=== PATIENT | female | born 1965 ===

== ENCOUNTER 2024-03-27 08:31 | Outpatient (REF) | payer BC, SELFPAY | END 2024-03-27 08:32 | disposition home or self-care (01) | LOC: HO.HOSX 08:31 | PROVIDERS: Visit Provider Orthopaedic Surgery | DX: Z13.89 Encounter for screening for other disorder (principal) ==

== ENCOUNTER 2024-05-01 11:28 | Outpatient (REF) | payer BC, SELFPAY ==
--- NOTE | ~2024-05-01 | XR_ITS ---
EXAMINATION: XR HAND, RIGHT CLINICAL INFORMATION: Pain. COMPARISON: None available. TECHNIQUE: PA, lateral, and oblique views of the right hand. FINDINGS: Bony alignment and mineralization are normal. There is a mild ulnar minus variance. There is moderate osteoarthritic change of the interphalangeal joint of the thumb. There is mild arthritic change of the second and fourth distal interphalangeal joints. There is moderate osteoarthritic change of the first carpometacarpal joint. No fracture or dislocation seen. There is no focal erosion. No focal soft swelling, gas or foreign body is seen. XR/XR hand RT min 3V IMPRESSION: There are osteoarthritic changes of the right hand and wrist, as detailed. Electronically signed by: Hossein Cheek MD 05/24/2024 10:43 PM EDT
== END 2024-05-01 11:29 | disposition home or self-care (01) ==
LOC: HO.HOSX 11:28
PROVIDERS: Visit Provider Orthopaedic Surgery
DX: M79.641 Pain in right hand (principal); R22.31 Localized swelling, mass and lump, right upper limb
CPT/HCPCS: 73130

== ENCOUNTER 2024-05-01 14:42 | Outpatient (AMB) | payer BC, SELFPAY ==
--- NOTE | 2024-05-01 15:25 | MHC.OFFVIS ---
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 Patient shares it has been a couple months since she first noticed it. Patient shares she has been wearing a bracelet for many years and noticed the lump, prompting her to remove the bracelet. She is unsure if it has changed in size. Denies pain or discomfort. Patient states she has noticed some swelling up in the right forearm. Denies numbness or tingling. Denies prior injuries or surgeries to the right wrist/hand. 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 She complains of a mass on the dorsal aspect of her right wrist. She says she first noticed this several months ago, and says it has somewhat changed in size. She also complains that she feels swelling in her right forearm compared to her left, and has difficulty wearing her bracelet due to this swelling. She denies any falls, injuries, numbness, or tingling. Review of Systems Const All systems reviewed & are unremarkable except as noted in HPI and below Physical Exam Const General: cooperative, healthy appearing and no acute distress Orientation/consciousness: patient oriented x3 HEENT Head: Yes normocephalic and Yes atraumatic Eyes EOM: EOMs intact bilaterally Resp Effort & Inspection: normal respiratory effort and able to speak in complete sentences Cardio Jugular venous distension: no JVD Skin General skin exam: turgor normal Rashes: no rashes Neuro General: patient oriented x3 Extrem Other: Evaluation of Right Upper Extremity: The patient is alert, oriented, and in no acute distress Neuro: Median, Ulnar, Radial nerves motor and sensory intact and sensation is normal to the tips of all digits Vascular: Cap refill brisk ROM: She can make a fist and extend all her digits Full wrist ROM Skin: No lacerations or abrasions. General: No Ecchymosis. No Erythema or evidence of infection. There is an area of fullness on the dorsal aspect of her right wrist dorsal to the DRUJ and perhaps slightly radial. It is perhaps 2 cm in length by perhaps 1.5-2 cm in width. The area is somewhat multi lobular, as 1 might feel with a lipoma. No discrete ganglion that I can feel. It is not particularly tender. No overlying skin changes. Psych Appearance: grossly normal Affect: normal affect Attitude: cooperative Assessment & Plan Assessment & Plan (1) Mass of right wrist: Code(s): R22.31 - Localized swelling, mass and lump, right upper limb Category: Medical Plan Assessment & Plan: 1. Question of right dorsal wrist mass No clearly identifiable ganglion, question possible lipoma Painless, not particularly tender I educated her about this condition Etiology is unclear, and I recommend we wait and see if there are any changes that develop over the next 2 months She will follow up in 2 months and we can re-assess. At that time we may consider ordering an MRI, with & without contrast, to better visualize this mass Scribed for Brigette Barahona MD by Donato Turner, manager medical writing, on 05/01/24 at 3:35 PM, EST. Orders: Orders XR hand RT min 3V Today M79.641 - Pain in right hand Coding Level of Care Code New Pt Level 3 (19843) Diagnoses Mass of right wrist R22.31
== END 2024-05-01 16:01 | disposition home or self-care (01) ==
PROVIDERS: PCP Internal Medicine; Visit Provider Orthopaedic Surgery
DX: R22.31 Localized swelling, mass and lump, right upper limb (principal)
CPT/HCPCS: 99203

== ENCOUNTER 2024-06-05 13:29 | Outpatient (AMB) | payer BC, SELFPAY ==
--- NOTE | 2024-06-05 13:34 | A.OFFVIS_ITS ---
Vital Signs 06/05/24 13:45 Height 5 ft 3.5 in Weight 218 lb BMI 38.0 Intake Visit Reasons: OV-right wrist mass Intake Note: Bernadette is a 59 right hand dominant female who presents today for a follow up evaluation of right wrist pain. Patient reports worsening swelling at the CMC joint causing right index and right middle finger swelling as well as tingling. Patient states she is experiencing morning stiffness as well as discomfort when trying to move her right hand on different directions. She also shares it hurts to grab things. She is questioning if she is having tendonitis again. She is currently wearing a wrist brace at night. Patient would like to discuss a steroid injection today. Denies prior injuries or surgeries to the right hand. Patient shared she is allergic to different antibiotics however she does not know her current medication allergies. She will be proving us with a list once she is able to. HPI HPI OV-right wrist mass: Details: Bernadette is a 59 year old woman who presents with complaints of right hand/wrist pain & swelling. She complains of increased swelling & pain in her right wrist, index, and middle fingers. She also complains of new tingling in her index & middle fingers. She says this pain & swelling began in the last few weeks, and she denies any falls, injuries, or any other activities. 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 She complains of morning stiffness in her fingers, and of generalized discomfort when moving her fingers. She finds grabbing or squeezing activities are painful. She has been wearing a wrist brace at night, with limited relief. She is worried she is developing a tendinitis. She says she develops De Quervains in the right wrist last year, and this was treated with an injection at an outside clinic. She says this took several months to resolve las time. She says she has been seen by Rheumatology in the past to assess for Rheumatologic conditions, and this was found to be negative. [facility] Social History (Updated 05/30/24 @ 15:04 by PILAR Holm) Current occupation: rt handed Physical Exam Vital Signs: BMI result Body Mass Index 38.0 Extrem Other: Evaluation of Right Upper Extremity: The patient is alert, oriented, and in no acute distress Neuro: Median, Ulnar, Radial nerves motor and sensory intact and sensation is normal to the tips of all digits Vascular: Cap refill brisk ROM: She can make a fist and extend all her digits Full wrist ROM Positive Robyn test on the right Negative Robyn test on the left Tender over the right 1st dorsal compartment There is an area of fullness on the dorsal aspect of her right wrist dorsal to the DRUJ and perhaps slightly radial. It is perhaps 2 cm in length by perhaps 1.5-2 cm in width. The area is somewhat multi lobular, as 1 might feel with a lipoma. No discrete ganglion that I can feel. It is not particularly tender. No overlying skin changes. Office Procedures AMB Fracture Care Details: No fracture, injection Fracture Billing Code: Fracture Billing Code Assessment & Plan Assessment & Plan (1) De Quervain's tenosynovitis, right: Code(s): M65.4 - Radial styloid tenosynovitis [de Quervain] Category: Medical (2) Mass of right wrist: Code(s): R22.31 - Localized swelling, mass and lump, right upper limb Category: Medical (3) Swelling of joint, hand, right: Code(s): M25.441 - Effusion, right hand Category: Medical Plan Assessment & Plan: 1. Right De Quervain's tenosynovitis Positive Robyn test Onset ~4 weeks ago I educated her about this condition I discussed operative and non-operative treatment options The patient would like to proceed with an injection I discussed activity modification, they should limit or avoid any heavy or repetitive pinching or gripping activities She was fitted for a comfort cool brace to wear with daily activity Injection #1: The risks and benefits of a steroid injection including but not limited to risk of damage to blood vessels, nerves, tendons, infection, skin bleaching, failure to improve symptoms, increased pain, and possible need for further injections or other intervention were discussed with the patient and the patient wishes to proceed with the steroid injection. Once consent was obtained, I sterilely prepped the area over the 1st dorsal compartment of the Right thumb. I then injected the 1st dorsal compartment with a combination of 1 mL of dexamethasone (4mg/ml), and 1% lidocaine. The patient tolerated the procedure well with no complications and good resolution of their symptoms prior to leaving clinic. If the patient continues to have pain 6-8 weeks following this injection, they may call to schedule appointment to discuss alternative treatment options she will follow up in 6 weeks to see how she is doing 2. Right hand swelling & stiffness Primarily in the 2nd and 3rd MCP joints Etiology unclear, onset ~4 weeks ago I recommend she work on gentle ROM & activity modification If her symptoms persist or worsen we may consider a referral to Rheumatology for assessment of a possible Rheumatologic factor 3. Question of right dorsal wrist mass No clearly identifiable ganglion, question possible lipoma Painless, not particularly tender I educated her about this condition Etiology is unclear, and I recommend we wait and see if there are any changes that develop over the next few weeks She will follow up in 6 weeks and we can re-assess. At that time we may consider ordering an MRI, with & without contrast, to better visualize this mass Scribed for Brigette Barahona MD by Donato Turner, emergency medical service coordinator, on 06/05/24 at 2:15 PM, EST. Orders: Referrals Rheumatology Referral M25.441 - Effusion, right hand, M65.4 - Radial styloid tenosynovitis [de Quervain], M79.641 - Pain in right hand Coding Level of Care Code Est Pt Level 3 (02853) Diagnoses De Quervain's tenosynovitis, right M65.4 Mass of right wrist R22.31 Swelling of joint, hand, right M25.441 CPT Codes Fracture Care - Fracture Billing Code: Fracture Billing Code ([id number])
[2024-06-05 13:45] VITALS: BMI 38.0
== END 2024-06-05 14:39 | disposition home or self-care (01) ==
PROVIDERS: PCP Internal Medicine; Visit Provider Orthopaedic Surgery
DX: M65.4 Radial styloid tenosynovitis [de Quervain] (principal); M25.441 Effusion, right hand
CPT/HCPCS: 20550; 99213

== ENCOUNTER → 2024-06-05 13:29 | Outpatient (BNVA) | payer BC, SELFPAY | PROVIDERS: PCP Internal Medicine; Visit Provider Orthopaedic Surgery | DX: M65.4 Radial styloid tenosynovitis [de Quervain] (principal); R22.31 Localized swelling, mass and lump, right upper limb; M25.441 Effusion, right hand | CPT/HCPCS: 20550; J1100 ==

== ENCOUNTER 2024-07-24 13:46 | Outpatient (AMB) | payer BC, SELFPAY ==
[2024-07-24 13:51] VITALS: BMI 38.0
--- NOTE | 2024-07-24 13:51 | MHC.OFFVIS ---
Vital Signs 07/24/24 13:51 Height 5 ft 3.5 in Weight 218 lb BMI 38.0 Intake Visit Reasons: OV RT dorsal wrist mass Intake Note: Bernadette is a 59 right hand dominant female who presents today to reassess mass on the right dorsal wrist. Patient reports steroid injection given 06/05/24 did not last as long as it did before. Patient has been taking Advil Dual Action without relief. Patient feels there is still swelling, questions if there is anything else happening. Patient would like an MRI of her hand/wrist. 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 She is here today for follow-up of her right de Quervain tenosynovitis. She had an injection with me on 06/05/2024, and she says that it worked for about a month, but she is back to having significant radial sided wrist pain. Of note, she had had an injection for this about a year ago that had lasted for several months. Again she has also noted some stiffness and swelling in her right 2nd and 3rd MCP joints but has been working on range of motion. We also referred her to Rheumatology for further evaluation of this issue, and she said that she has an appointment with them on 08/15/2024. [facility] Social History (Updated 05/30/24 @ 15:04 by PILAR Holm) Current occupation: rt handed Physical Exam Vital Signs: BMI result Body Mass Index 38.0 Extrem Other: Patient was alert oriented and in no acute distress. She is most tender to palpation over the right 1st dorsal compartment over the radial styloid. Small, 2-3 mm diameter spherical mass most consistent with a small ganglion over the 1st dorsal compartment at the radial styloid. She has a positive Robyn test on the right and a negative Robyn test on the left. No tenderness over the A1 yudith and no locking or catching. Not particularly tender over the basal joint. Cap refill brisk and sensation intact to all digits. She does still have some visible swelling of the 2nd and 3rd MCP joints. Somewhat improve range of motion as she is better able to make a fist and extend all of her digits. No locking or catching. Assessment & Plan Assessment & Plan (1) De Quervain's tenosynovitis, right: Code(s): M65.4 - Radial styloid tenosynovitis [de Quervain] Category: Medical (2) Swelling of joint, hand, right: Code(s): M25.441 - Effusion, right hand Category: Medical Plan Assessment and plan: 1. Right de Quervain tenosynovitis Status post steroid injection 06/05/2024 She also had an injection at an outside clinic about a year ago. She continues to be symptomatic. I educated her about this condition and we discussed operative and non operative treatment options. She would like to proceed with surgery. The risks and benefits of operative treatment were discussed with the patient and the patient wishes to proceed with surgery. These risks include, but are not limited to risk of damage to blood vessels, nerves, tendons, infection, recurrence, incomplete relief of preoperative symptoms, persistent pain, possible need for further surgery and the risks associated with regional blocks and anesthesia. The plan is to take the patient to the operating room sometime in the next few weeks for the following procedures: 1. Right 1st dorsal compartment release 2. Excision of associated ganglion cyst All of the preoperative paperwork including the consent was filled out today. All the patient's questions were answered. 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 2. Right hand swelling & stiffness Primarily in the 2nd and 3rd MCP joints Etiology unclear, onset summer Range of motion has improved with range of motion exercises. She is scheduled to see Rheumatology for assessment of a possible Rheumatologic factor 3. Question of right dorsal wrist mass No clearly identifiable ganglion, question possible lipoma Painless, not particularly tender Not mentioned were evaluated today. Coding Level of Care Code Est Pt Level 4 (14195) Diagnoses De Quervain's tenosynovitis, right M65.4 Swelling of joint, hand, right M25.441
== END 2024-07-24 14:37 | disposition home or self-care (01) ==
PROVIDERS: PCP Internal Medicine; Visit Provider Orthopaedic Surgery
DX: M65.4 Radial styloid tenosynovitis [de Quervain] (principal); M25.441 Effusion, right hand
CPT/HCPCS: 99214

== ENCOUNTER 2024-08-15 12:20 | Outpatient (AMB) | payer BC, SELFPAY ==
[2024-08-15 12:40] VITALS: BP 112/52; PULSE 71; BMI 41.5
--- NOTE | 2024-08-15 12:40 | A.OFFVIS_ITS ---
Vital Signs 08/15/24 12:40 Height 5 ft 3.5 in Weight 238 lb 1.588 oz BMI 41.5 BP 112/52 L Blood Pressure Location Lt brachial Position Sitting Pulse 71 Pulse Source Pulse Oximeter Intake Visit Reasons: Join pain,cm Intake Note: Patient present today for joint pain. 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 Accompanied by: Self / Same As Patient Allergies latex Allergy (Mild, Verified 08/15/24 12:46) Unknown amoxicillin Allergy (Unknown, Verified 08/15/24 12:45) Unknown clavulanic acid [From Augmentin] Allergy (Unknown, Verified 08/15/24 12:45) Unknown clindamycin Allergy (Unknown, Verified 08/15/24 12:45) Unknown levofloxacin [From Levaquin] Allergy (Unknown, Verified 08/15/24 12:45) Unknown Penicillins Allergy (Unknown, Verified 08/15/24 12:45) Unknown Sulfa (Sulfonamide Antibiotics) Allergy (Verified 08/15/24 12:45) edema Medication List - Last Reconciled 08/15/24 by Lin Nelson MD albuterol sulfate 90 mcg/actuation inhalation azelastine 1 spray intranasal ONCE fluticasone propionate 50 mcg/actuation (Allergy Relief (fluticasone)) 1 spray intranasal DAILY metoprolol succinate ER 50 mg PO DAILY valsartan 80 mg PO DAILY HPI Comments Details: Patient is a 59 y.o. female with HTN who presents for evaluation of hand pain Patient notes that she has been having hand pain for over 1 year, involving the 1st CMC joint bilaterally, DIPs, and bilateral 2nd MCPs (R>L). Particularly when she does fine movements with her hands such as knitting Pain is worse at the end of the day, but does not AM stiffness for 1 hour. She is also notes that sometimes she has swelling of her 3rd digit associated with scaling of that finger She also reports wrist pain and knee pain. No knee swelling. No intermittent swelling with resolution No known family history of RA or SLE Mother and father with OA. [facility] Medical History (Updated 08/15/24 @ 15:19 by Lin Nelson MD) Osteoarthritis of hands, bilateral Social History Current occupation: rt handed Review of Systems Const Details: Review of Systems Constitutional: Denies fever, chills, weight loss ENT: Denies vision changes, eye pain or eye redness, dental caries, dry mouth GI: Denies nausea, vomiting, diarrhea, abdominal pain, change in BM Pulm: Denies SOB, SORIA, hemoptysis, wheezing Cards: Denies chest pain, palpitations Skin: Denies Raynaud's, rash, nail changes, photosensitivity, MARINE BIOLOGIST: Denies headaches, weakness, paresthesias, recurrent falls MSK: as per HPI All other systems reviewed and are unremarkable except noted above Physical Exam Vital Signs: Last Vital Signs Pulse 71 08/15/24 12:40 BP 112/52 L 08/15/24 12:40 BMI result Body Mass Index 41.5 Physical Examination CONSTITUITIONAL Patient alert and cooperative. Well appearing and in no apparent painful distress HEENT Conjunctiva and sclera clear. ?Pupils equal round and reactive to light. ?No lymphadenopathy CHEST/RESPIRATORY SYSTEM Normal respiratory effort and able to speak in complete sentences. ?Clear to auscultation bilaterally. ?No crackles, rales, rhonchi, wheezes heard. CARDIAC SYSTEM Regular rate and rhythm. ?S1 and S2 heard no murmurs. ?Radial pulses intact bilaterally MSK Hands: ?Good swim coach strength bilaterally - 5/5. ?Heberden's nodes noted throughout. Fullness and tenderness to palpation noted to the 2nd MCP. Wrists: ?Full range of motion at the wrists without pain. ?No tenderness to palpation or synovitis noted to the wrists. Known de Quervain tenosynovitis Elbows: Full range of motion without pain. No tenderness, weakness, swelling, increased warmth or erythema. Shoulders: Full range of motion without pain. No tenderness, weakness, swelling, increased warmth or erythema. Hips: Full range of motion without pain. Hip bursa: No tenderness to palpation Knees: ?Full range of motion. ?No tenderness, swelling, increased warmth or erythema.?No effusion or crepitations Ankles: Full range of motion. ?No tenderness, swelling, increased warmth or erythema.? Feet: ?Negative squeeze test. ?No tenderness to palpation or swelling of the MTPs. Tender points:??No tenderness to palpation of the neck, shoulders, chest, elbows, hips, buttocks or knees. SKIN Scaling noted to the palmar surface of the right 3rd digit Rash noted over eyelid Erythema noted to the anterior upper chest Results Reviewed Results Reviewed: XR Right Hand 05/01/2024 FINDINGS: Bony alignment and mineralization are normal. There is a mild ulnar minus variance. There is moderate osteoarthritic change of the interphalangeal joint of the thumb. There is mild arthritic change of the second and fourth distal interphalangeal joints. There is moderate osteoarthritic change of the first carpometacarpal joint. No fracture or dislocation seen. There is no focal erosion. No focal soft swelling, gas or foreign body is seen. Assessment & Plan Assessment & Plan (1) Osteoarthritis of hands, bilateral: Code(s): M19.041 - Primary osteoarthritis, right hand; M19.042 - Primary osteoarthritis, left hand Category: Medical Qualifiers: Osteoarthritis type: primary Qualified Code(s): M19.041 - Primary osteoarthritis, right hand; M19.042 - Primary osteoarthritis, left hand Plan: #Hand Pain Exam is consistent with primary osteoarthritis however with her swelling and tenderness to the 2nd MCP of the right hand there is a possibility that she may have an underlying autoimmune disorder such as rheumatoid arthritis. However she does have a history of fine movements with her hands such as knitting which can cause synovial hypertrophy involving the 2nd MCP. XRs without evidence of periarticular osteopenia or erosions Plan - Check RF, CCP, ESR - Check myositis extended panel given the scaling to hand and the erythema to upper chest - Topical diclofenac up to three times a day - Continue OTC Naproxen, on bad days can take up to 2 tablets twice a day - RTC September 2024 Plan I spent 30 minutes reviewing the record, reviewing XRs, seeing the patient, discussing the treatment plan and documenting in the medical record ? Orders: Orders Comprehensive Met. Panel Today M25.441 - Effusion, right hand, M79.641 - Pain in right hand Aldolase Today M25.441 - Effusion, right hand, M79.641 - Pain in right hand Creatine Kinase Total Today M25.441 - Effusion, right hand, M79.641 - Pain in right hand Complete Blood Count Auto Diff Today M25.441 - Effusion, right hand, M79.641 - Pain in right hand C Reactive Protein Today M25.441 - Effusion, right hand, M79.641 - Pain in right hand Erythrocyte Sedimentation Rate Today M25.441 - Effusion, right hand, M79.641 - Pain in right hand Rheumatoid Factor Today M25.441 - Effusion, right hand, M79.641 - Pain in right hand Cyclic Citrullinated Peptide Today M25.441 - Effusion, right hand, M79.641 - Pain in right hand MSA Panel Extended Today M25.441 - Effusion, right hand, M79.641 - Pain in right hand Medications: New diclofenac sodium 1% apply to single knee, ankle, foot; for foot includes sole/toes/top of foot 4 grams topical QID 100 grams 2RF M19.041 - Primary osteoarthritis, right hand, M19.042 - Primary osteoarthritis, left hand Coding Level of Care Code New Pt Level 3 (93383) Diagnoses Primary osteoarthritis of both hands M19.041; M19.042 Osteoarthritis type: primary
== END 2024-08-15 13:42 | disposition home or self-care (01) ==
PROVIDERS: PCP Internal Medicine; Visit Provider Student in an Organized Health Care Education/Training Program
DX: M19.041 Primary osteoarthritis, right hand (principal); M19.042 Primary osteoarthritis, left hand
CPT/HCPCS: 99203

== ENCOUNTER 2024-08-15 12:20 | Outpatient (REF) | payer BC, SELFPAY ==
[2024-08-15 14:13] LABS: MANUAL DIFF FLAG NO
[2024-08-15 15:01] LABS: Basophils Absolute Auto 0.1 X10*3/uL (0.0-0.2); Basophils Percent Auto 1.1 % (0-2); Eosinophils Absolute Auto 0.3 X10*3/uL (0.0-0.4); Eosinophils Percent Auto 3.4 % (0-4); Hematocrit 42.1 % (37.0-47.0); Hemoglobin 13.6 g/dl (12.0-16.0); Imm Gran Abs Auto 0.02 X10*3/uL (0.00-0.03); Imm Gran Pct Auto 0.2 % (0.0-0.4); Lymphocytes Absolute Auto 3.1 X10*3/uL (1.2-4.9); Lymphocytes Percent Auto 34.5 % (20-40); Mean Corpuscular HGB Conc 32.3 g/dl (31.0-35.0); Mean Corpuscular Hemoglobin 28.4 pg (27.0-33.0); Mean Corpuscular Volume 87.9 fL (80.0-98.0); Mean Platelet Volume 11.9 fL (9.4-12.3); Monocytes Absolute Auto 0.8 X10*3/uL (0.1-1.2); Monocytes Percent Auto 8.3 % (2-11); Neutrophils Absolute Auto 4.8 x10*3/uL (2.0-8.3); Neutrophils Percent Auto 52.5 % (45-73); Platelet Count 228 X10*3/uL (160-400); Red Blood Count 4.79 X10*6/uL (4.20-5.50); Red Cell Distribution Width 13.4 % (11.0-16.0); White Blood Count 9.1 X10*3/uL (4.8-10.8)
[2024-08-15 15:34] LABS: Alanine Aminotransferase 67 U/L (0-31); Albumin Level 4.6 g/dL (3.5-5.0); Alkaline Phosphatase 103 U/L (39-117); Anion Gap 13 (12-20); Aspartate Amino Transferase 44 U/L (5-31); Bilirubin Total 0.4 mg/dL (0.0-1.0); Blood Urea Nitrogen 14 mg/dL (9-16); C Reactive Protein 1.34 mg/dL (< or = 0.50); Calcium 9.8 mg/dL (8.4-10.2); Carbon Dioxide 29 mmol/L (22-29); Chloride 102 mmol/L (96-108); Estimated Glomerular Filt Rate > 60; Glucose Random 101 mg/dL (60-115); Potassium 4.8 mmol/L (3.3-5.1); Sodium 139 mmol/L (135-145); Total Protein 8.2 g/dL (6.5-8.0)
[2024-08-15 15:41] LABS: Erythrocyte Sedimentation Rate 17 MM/HR (0-20)
[2024-08-15 15:44] LABS: Rheumatoid Factor < 13.0 IU/mL (<15.0)
[2024-08-20 20:18] LABS: Cyclic Citrullinated Peptide <16 UNITS
[2024-08-30 22:03] LABS: Aldolase 6.3 U/L (<=8.1)
[2024-09-10 14:58] LABS: Cytosolic 5'nuc 1A Ab IgG <5 Units; Ej Ab <11 SI (<11); Jo-1 Ab <11 SI (<11); MDA5 Ab <11 SI (<11); Mi-2 alpha Ab <11 SI (<11); Mi-2 beta Ab <11 SI (<11); NXP-2 (MJ) Ab <11 SI (<11); Oj Ab <11 SI (<11); Pl-12 Ab <11 SI (<11); Pl-7 Ab <11 SI (<11); SRP Ab <11 SI (<11); TIF1 gamma Ab <11 SI (<11)
== END 2024-08-15 12:21 | disposition home or self-care (01) ==
LOC: HO.LAB 12:20
PROVIDERS: PCP Internal Medicine; Visit Provider Student in an Organized Health Care Education/Training Program
DX: M25.441 Effusion, right hand (principal); M79.641 Pain in right hand; M19.041 Primary osteoarthritis, right hand; M19.042 Primary osteoarthritis, left hand
CPT/HCPCS: 36415; 80053; 82085; 82550; 83516; 83520; 84182; 85025; 85652; 86140; 86200; 86235; 86431

== ENCOUNTER 2024-09-21 14:35 | Outpatient (AMB) | payer BC, SELFPAY ==
[2024-09-21 14:36] VITALS: BP 130/82; PULSE 83; O2SAT 98; BMI 41.5
--- NOTE | 2024-09-21 14:36 | A.OFFVIS_ITS ---
Vital Signs 09/21/24 14:36 Height 5 ft 3.5 in Weight 238 lb 1.588 oz BMI 41.5 BP 130/82 Blood Pressure Location Lt brachial Position Sitting Pulse 83 Pulse Source Pulse Oximeter Pulse Oximetry (%) 98 Oxygen Delivery Method Room Air Intake Visit Reasons: RT hand arthritis Intake Note: Patient presents for right hand arthritis and , and she states that the Aquaphor that was suggested is not helping. Allergies latex Allergy (Mild, Verified 09/21/24 14:41) Unknown amoxicillin Allergy (Unknown, Verified 09/21/24 14:41) Unknown clavulanic acid [From Augmentin] Allergy (Unknown, Verified 09/21/24 14:41) Unknown clindamycin Allergy (Unknown, Verified 09/21/24 14:41) Unknown levofloxacin [From Levaquin] Allergy (Unknown, Verified 09/21/24 14:41) Unknown Penicillins Allergy (Unknown, Verified 09/21/24 14:41) Unknown Sulfa (Sulfonamide Antibiotics) Allergy (Verified 09/21/24 14:41) edema Medication List - Last Reconciled 09/21/24 by Lin Nelson MD albuterol sulfate 90 mcg/actuation inhalation azelastine 1 spray intranasal ONCE betamethasone dipropionate 0.05% 1 appl topical BID PRN diclofenac sodium 1% 4 grams topical QID fluticasone propionate 50 mcg/actuation (Allergy Relief (fluticasone)) 1 spray intranasal DAILY metoprolol succinate ER 50 mg PO DAILY valsartan 80 mg PO DAILY HPI Comments Details: Patient is a 59 y.o. female with HTN who presents for follow up of hand pain Interval History: Patient last seen 08/15/2024. At that time she was establishing care for bilateral hand pain more so right than left. At that time the exam and history was more consistent with osteoarthritis. I recommended topical diclofenac up to 4 times a day. Today patient presents for urgent visit because she is complaining of irritation over the right 3rd PIP. She is concerned that this may be psoriasis. She does note that when her DIPs initially started to hurt she had this skin reaction or skin rash over the DIPs and that resolved and has now progressed to the PIP where she has issues. She denies any rashes any other place in her body. No nail changes. No history of psoriasis. No dactylitis or enthesitis. Rheumatologic History: Presented with complaints of bilateral pain. Signs and symptoms including imaging was consistent osteoarthritis. Initial History: Patient notes that she has been having hand pain for over 1 year, involving the 1st CMC joint bilaterally, DIPs, and bilateral 2nd MCPs (R>L). Particularly when she does fine movements with her hands such as knitting Pain is worse at the end of the day, but does not have AM stiffness for 1 hour. She is also notes that sometimes she has swelling of her 3rd digit associated with scaling of that finger She also reports wrist pain and knee pain. No knee swelling. No intermittent swelling with resolution No known family history of RA or SLE Mother and father with OA. 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 Review of Systems Const Details: Review of Systems Constitutional: Denies fever, chills, weight loss ENT: Denies vision changes, eye pain or eye redness, dental caries, dry mouth GI: Denies nausea, vomiting, diarrhea, abdominal pain, change in BM Pulm: Denies SOB, SORIA, hemoptysis, wheezing Cards: Denies chest pain, palpitations Skin: Denies Raynaud's, rash, nail changes, photosensitivity, [employer]LECT[employer]OL [employer]SEM[employer]ER: Denies headaches, weakness, paresthesias, recurrent falls MSK: as per HPI All other systems reviewed and are unremarkable except noted above Physical Exam Vital Signs: BMI result Body Mass Index 41.5 Physical Examination CONSTITUITIONAL Patient alert and cooperative. Well appearing and in no apparent painful distress HEENT Conjunctiva and sclera clear. ?Pupils equal round and reactive to light. ?No lymphadenopathy. ? CHEST/RESPIRATORY SYSTEM Normal respiratory effort and able to speak in complete sentences. ?Clear to auscultation bilaterally. ?No crackles, rales, rhonchi, wheezes heard. CARDIAC SYSTEM Regular rate and rhythm. ?S1 and S2 heard no murmurs. 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 No deformities noted. ?No synovitis noted to the MCPs, PIPs or DIPs. ?Mild tenderness to palpation of the DIPs. Wrists: ?Full range of motion at the wrists without pain. ?No tenderness to palpation or synovitis noted to the wrists. Elbows: Full range of motion without pain. No tenderness, weakness, swelling, increased warmth or erythema. Shoulders: Full range of motion without pain. No tenderness, weakness, swelling, increased warmth or erythema. Hips: Full range of motion without pain. Hip bursa: No tenderness to palpation Knees: ?Full range of motion. ?No tenderness, swelling, increased warmth or erythema.?No effusion or crepitations Ankles: Full range of motion. ?No tenderness, swelling, increased warmth or erythema.? Feet: ?Negative squeeze test. ?No tenderness to palpation or swelling of the MTPs. Tender points:?No tenderness to palpation of the bilateral trapezius, supraspinatus, greater trochanters, anterior costochondral junctions, bilateral gluteal areas, bilateral suboccipital muscle insertions SKIN flat erythematous irregular patch overlying the right 3rd PIP No psoriatic plaques to the elbows, hairline, gluteal fold. Results Reviewed Results Reviewed: Laboratory Tests 08/15/24 14:11 WBC 9.1 RBC 4.79 Hgb 13.6 Hct 42.1 Plt Count 228 ESR 17 Sodium 139 Potassium 4.8 Chloride 102 Carbon Dioxide 29 BUN 14 Creatinine 0.91 AST 44 H ALT 67 H Total Creatine Kinase 187 H C-Reactive Protein 1.34 H Total Protein 8.2 H Albumin 4.6 Aldolase 6.3 Rheumatoid Factor < 13.0 Cycl Citrul Peptide IgG <16 NORRIS-1 Antibody <11 EJ Antibody <11 OJ Antibody <11 Mi-2-Alpha Ab <11 Mi-2-Beta Ab <11 NXP-2 Ab <11 PL-7 Antibody <11 PL-12 Antibody <11 SRP Ab <11 MDA5 Ab <11 Myos P155/140 TIF1-g Ab <11 NT5C1A IgG Antibody <5 XR Right Hands 08/2024 FINDINGS: Bony alignment and mineralization are normal. There is a mild ulnar minus variance. There is moderate osteoarthritic change of the interphalangeal joint of the thumb. There is mild arthritic change of the second and fourth distal interphalangeal joints. There is moderate osteoarthritic change of the first carpometacarpal joint. No fracture or dislocation seen. There is no focal erosion. No focal soft swelling, gas or foreign body is seen. My read: I noticed some periosteal reaction involving the ulnar and radial side of the 2nd, 3rd, 4th proximal phalanx. Assessment & Plan Assessment & Plan (1) Osteoarthritis of hands, bilateral: Code(s): M19.041 - Primary osteoarthritis, right hand; M19.042 - Primary osteoarthritis, left hand Category: Medical Qualifiers: Osteoarthritis type: primary Qualified Code(s): M19.041 - Primary osteoarthritis, right hand; M19.042 - Primary osteoarthritis, left hand Plan: #Bilateral hand OA I reviewed the XRs with the patient I did notice some periosteal reaction involving the 2nd, 3rd, and 4th proximal phalanx I discussed this with Hossein Cheek MD, the radiologist who read the XRs and he said he believes this to be a normal variant. He said he would check with his ortho colleagues and place an addendum if necessary. For now we will proceed with the diagnosis of OA. She does not have prolonged AM stiffness, enthesitis, dactylitis or any other features to suggest PsA. Her CRP was a bit elevated but she also had abnormal LFTs which could be conributing. Especially since her ESR was normal Plan - Topical diclofenac - RTC Oct 11 for review (2) Contact dermatitis and other eczema due to other specified agent: Code(s): L25.8 - Unspecified contact dermatitis due to other agents Category: Medical Plan: #Painful rash over the right 3rd PIP #Contact dermatitis The rash over her 3rd PIP seems to be more consistent with a contact dermatitis. In the differential is psoriasis but there is no scale and the lesions are not raised. There is no rash anywhere else on her body Will try topical high potency steroids Plan - Topical betamethasone 0.05% apply up to twice a day Plan I spent 30 minutes reviewing the record and labs, taking a history, examining the patient, discussing the treatment plan, contacting Hossein and documenting in the medical record Medications: New betamethasone dipropionate 0.05% 1 appl topical BID PRN 45 grams 1RF skin irritation L25.8 - Unspecified contact dermatitis due to other agents Coding Level of Care Code Est Pt Level 4 (93268) Diagnoses Primary osteoarthritis of both hands M19.041; M19.042 Osteoarthritis type: primary Contact dermatitis and other eczema due to other specified agent L25.8
== END 2024-09-21 15:21 | disposition home or self-care (01) ==
PROVIDERS: PCP Internal Medicine; Visit Provider Student in an Organized Health Care Education/Training Program
DX: M19.041 Primary osteoarthritis, right hand (principal); M19.042 Primary osteoarthritis, left hand; L25.8 Unspecified contact dermatitis due to other agents
CPT/HCPCS: 99214

== ENCOUNTER → 2024-09-21 14:35 | Outpatient (BNVA) | payer BC, SELFPAY | PROVIDERS: PCP Internal Medicine; Visit Provider Student in an Organized Health Care Education/Training Program ==

== ENCOUNTER 2024-10-01 09:35 | Day surgery (SDC) | payer BC, SELFPAY ==
[2024-10-01 10:17] VITALS: BP 155/75; PULSE 83; RESP 16; TEMP 36.9; O2SAT 96; BMI 41.5
--- NOTE | 2024-10-01 11:23 | P.OP_ITS ---
Operative Note Operative Note Date of Service: 10/01/24 Narrative: Operative Note Preop diagnosis: 1. Right DeQuervain's tenosynovitis 2. Right radial wrist ganglion associated with 1st dorsal compartment Postop diagnosis: Same Procedure: 1. Right 1st dorsal compartment release 2. Right wrist ganglion excision, associated with 1st dorsal compartment 3. Right abductor pollicis longus tenosynovectomy Surgeon: Brigette Barahona MD Electrical Tryout Person: None Anesthesia: local block using 1% lidocaine with epinephrine Findings: Significantly Thickened 1st dorsal compartment. Hypertrophic tenosynovium about APL tendon. EPB noted to be in a separate compartment EBL: Less than 5 mL Tourniquet time: None Specimens: None Complications: None Disposition: Brought to recovery room in stable condition Plan: Follow-up for 7-10 days for wound check and suture removal Indications: The patient is 59 years old, with right DeQuervain's tenosynovitis and then associated ganglion cyst that have been unresponsive to nonoperative management. The risks and benefits of operative treatment including but not limited to risk of damage to blood vessels, nerves, tendons, infection, persistent pain, persistent symptoms, recurrence or possible need for additional surgery were discussed with the patient and the patient wishes to proceed with surgery. Procedure: Once consent was obtained a local block was performed in the preop area using a combination of 1% lidocaine with epinephrine. The patient was then brought back to the operating suite and placed on the operative table in supine position. A tourniquet was applied to the proximal aspect of the right upper extremity and the limb was prepped and draped in a standard surgical fashion. Once assured that we had a good block, a 1.5 cm longitudinal incision was made centered over the 1st dorsal compartment as it passed over the radial styloid of the right wrist. The incision was made through the skin to the subcutaneous tissues using a #15 blade. Careful dissection was made down to the level of the 1st dorsal compartment using tenotomy scissors, with care being taken to protect the nearby branches of the superficial radial nerve. A ganglion measuring about 5 mm in diameter was appreciated on the distal aspect of the 1st dorsal compartment. This was excised using a 15. Blade and iris scissors. It was filled with clear viscous fluid consistent with a ganglion. Once the 1st dorsal compartment was exposed, A longitudinal incision was made in the 1st dorsal compartment 1st using a #15 blade, then using tenotomy scissors under direct visualization. The 1st dorsal compartment was noted to be significantly thickened, particularly at its distal aspect. The extensor pollicis brevis was noted to be in a 2nd compartment. This was also released longitudinally using a 15. Blade and iris scissors. She was also noted to have some hypertrophic tenosynovium particularly about the abductor pollicis longus tendon. I then performed a tenosynovectomy excising this hypertrophic tenosynovium using tenotomy and iris scissors.. Following our release, we saw smooth gliding abductor pollicis longus and extensor pollicis brevis tendons. Once satisfied with our 1st dorsal compartment release the wound was copiously irrigated with normal saline and hemostasis was obtained with a brief period of local pressure. The subcutaneous layer was closed with some 4-0 Vicryl suture, and the skin edges were reapproximated with some 5.0 nylon suture material. A sterile dressing was applied. The patient appears to have tolerated the procedure well and with no complications. All digits were well vascularized at the conclusion of the case.
--- NOTE | 2024-10-01 11:23 | MHC.SHP ---
Pre-Procedural Eval Section A - 24 Hr Update-Section A only Date of Service: 10/01/24 The patient is an INPATIENT: No Changes since office visit: No Cold of Flu in the past 2 weeks, No New Medical Problems, No Changes in Medication and No Patient answered all questions The patient has been examined within 24 hours of the surgical procedure. The History & Physical has been completed within 30 days and I have reviewed it.: Yes Section B - Complete if H&P > 30 days Chief Complaint: Radial styloid tenosynovitis [de Quervain] Allergies: Allergies Allergy/AdvReac Type Severity Reaction Status Date / Time latex Allergy Mild Unknown Verified 09/21/24 14:41 amoxicillin Allergy Unknown Unknown Verified 09/21/24 14:41 clavulanic acid Allergy Unknown Unknown Verified 09/21/24 14:41 [From Augmentin] clindamycin Allergy Unknown Unknown Verified 09/21/24 14:41 levofloxacin [From Levaquin] Allergy Unknown Unknown Verified 09/21/24 14:41 Penicillins Allergy Unknown Unknown Verified 09/21/24 14:41 Sulfa (Sulfonamide Allergy edema Verified 09/21/24 14:41 Antibiotics) Plan Diagnosis/Plan: Unchanged I have reviewed the history and physical and performed a pertinent physical examination on my patient. No changes have occurred unless specified. Time Spent With Patient Time: Total time managing care of this patient today ____ minutes.
[2024-10-01 12:14] VITALS: BP 167/80; PULSE 68; RESP 20; O2SAT 99
== END 2024-10-01 12:15 | disposition home or self-care (01) ==
PROVIDERS: PCP Internal Medicine; Visit Provider Orthopaedic Surgery
PROC: (CPT 25118; principal; 2024-10-01 10:50)
PROC: (CPT 25118; 2024-10-01 10:50)
DX: M65.4 Radial styloid tenosynovitis [de Quervain] (principal); M25.441 Effusion, right hand; M67.431 Ganglion, right wrist; M67.833 Other specified disorders of tendon, right wrist; M19.041 Primary osteoarthritis, right hand; Z79.1 Long term (current) use of non-steroidal anti-inflammatories (NSAID); Z88.0 Allergy status to penicillin; Z88.1 Allergy status to other antibiotic agents; Z88.2 Allergy status to sulfonamides
CPT/HCPCS: 25118; 25000; 25111; J0171; J2003

== ENCOUNTER → 2024-10-01 09:35 | Outpatient (BNV) | payer BC, SELFPAY | PROVIDERS: PCP Internal Medicine; Visit Provider Orthopaedic Surgery | DX: M65.4 Radial styloid tenosynovitis [de Quervain] (principal); M67.431 Ganglion, right wrist | CPT/HCPCS: 25000; 25111 ==

== ENCOUNTER 2024-10-16 14:58 | Outpatient (AMB) | payer BC, SELFPAY ==
--- NOTE | 2024-10-16 15:08 | A.OFFVIS_ITS ---
Vital Signs 10/16/24 15:09 Height 5 ft 3.5 in Weight 238 lb BMI 41.5 Intake Visit Reasons: PO RT 1st DC release 10/01/24 AR Allergies latex Allergy (Mild, Verified 09/21/24 14:41) Unknown amoxicillin Allergy (Unknown, Verified 09/21/24 14:41) Unknown clavulanic acid [From Augmentin] Allergy (Unknown, Verified 09/21/24 14:41) Unknown clindamycin Allergy (Unknown, Verified 09/21/24 14:41) Unknown levofloxacin [From Levaquin] Allergy (Unknown, Verified 09/21/24 14:41) Unknown Penicillins Allergy (Unknown, Verified 09/21/24 14:41) Unknown Sulfa (Sulfonamide Antibiotics) Allergy (Verified 09/21/24 14:41) edema HPI HPI PO RT 1st DC release 10/01/24 AR: Details: Patient is a 59-year-old female who presents for postoperative evaluation status post right 1st dorsal compartment release, DOS 10/09/[address] Barahona. Today, the patient reports that she is still experiencing pain in the area, but it has improved since before surgery. 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 Neuro: Normal sensation of the tips of all digits of the right hand at this time Vascular: Cap refill brisk Pain: Patient reports mild tenderness to palpation about the incision site over the 1st dorsal compartment of the right wrist Slight pain with supination of the right hand Mildly positive Robyn on the right ROM: Patient is able to flex and extend all digits of the right hand fully and without difficulty Skin: Well approximated and well healing incision site noted on the 1st dorsal compartment of the right wrist There is some mild erythema surrounding the sutures, consistent with potential cellulitis versus suture irritation General: No ecchymosis Psych: Appears grossly normal Affect normal Attitude cooperative Assessment & Plan Assessment & Plan (1) De Quervain's tenosynovitis, right: Code(s): M65.4 - Radial styloid tenosynovitis [de Quervain] Category: Medical Plan 1. Status post right 1st dorsal compartment release Patient appears to be recovering well postoperatively Patient is educated about the typical recovery course Sutures removed, Steri-Strips applied At this time, out of an abundance of caution, patient was placed on a one-week course of doxycycline for treatment of potential cellulitis at surgical site Patient will follow-up in 1 week for wound check, sooner with any acute concerns Medications: New doxycycline hyclate 100 mg PO BID 7 days 14 tabs 0RF Coding Level of Care Code Global (81539) Diagnoses De Quervain's tenosynovitis, right M65.4
[2024-10-16 15:09] VITALS: BMI 41.5
== END 2024-10-16 15:31 | disposition home or self-care (01) ==
PROVIDERS: PCP Internal Medicine
DX: M65.4 Radial styloid tenosynovitis [de Quervain] (principal)
CPT/HCPCS: 99024

== ENCOUNTER → 2024-10-16 14:58 | Outpatient (BNVA) | payer BC, SELFPAY | PROVIDERS: PCP Internal Medicine ==

== ENCOUNTER 2024-10-23 14:13 | Outpatient (AMB) | payer BC, SELFPAY ==
--- NOTE | 2024-10-23 14:14 | MHC.OFFVIS ---
Intake Visit Reasons: PO RT 1st DC release 10/01/24 AR Intake Note: Bernadette is a 59 year old right hand dominant female who presents today for a post operative appointment s/p Right Dorsal Compartment Release 07/01/25. At her last visit she was placed on a one week course of antibiotics for treatment of potential cellulitis. Patient report that she has one more tablet to take for antibiotics. She still has some redness at incision site. The incision is itchy but she is unsure if this is related to healing or infection. Allergies latex Allergy (Mild, Verified 09/21/24 14:41) Unknown amoxicillin Allergy (Unknown, Verified 09/21/24 14:41) Unknown clavulanic acid [From Augmentin] Allergy (Unknown, Verified 09/21/24 14:41) Unknown clindamycin Allergy (Unknown, Verified 09/21/24 14:41) Unknown levofloxacin [From Levaquin] Allergy (Unknown, Verified 09/21/24 14:41) Unknown Penicillins Allergy (Unknown, Verified 09/21/24 14:41) Unknown Sulfa (Sulfonamide Antibiotics) Allergy (Verified 09/21/24 14:41) edema HPI HPI PO RT 1st DC release 10/01/24 AR: Details: Bernadette is a 59 year old right hand dominant female who presents today for a post operative appointment s/p Right Dorsal Compartment Release 07/01/25. At her last visit she was placed on a one week course of antibiotics for treatment of potential cellulitis. Patient report that she has one more tablet to take for antibiotics. She still has some redness at incision site. The incision is itchy but she is unsure if this is related to healing or infection. [facility] Medical History (Updated 09/21/24 @ 15:11 by Lin Nelson MD) Contact dermatitis and other eczema due to other specified agent Osteoarthritis of hands, bilateral Social History Current occupation: rt handed Review of Systems Const All systems reviewed & are unremarkable except as noted in HPI and below Physical Exam Extrem Other: Patient is alert, oriented, and in no acute distress. Neuro: Normal sensation of the tips of all digits of the right hand at this time Vascular: Cap refill brisk Pain: Patient reports tenderness to very gentle palpation about the incision site over the 1st dorsal compartment of the right wrist Slight pain with supination of the right hand Mildly positive Robyn on the right ROM: Patient is able to flex and extend all digits of the right hand fully and without difficulty Skin: Well approximated and well healing incision site noted on the 1st dorsal compartment of the right wrist There is some mild erythema surrounding the sutures, consistent with irritation/mild allergic reaction General: No ecchymosis Psych: Appears grossly normal Affect normal Attitude cooperative Assessment & Plan Assessment & Plan (1) De Quervain's tenosynovitis, right: Code(s): M65.4 - Radial styloid tenosynovitis [de Quervain] Category: Medical Plan 1. Status post right 1st dorsal compartment release Patient appears to be recovering well postoperatively Patient is educated about the typical recovery course Patient was educated she should avoid applying anything to the wound directly, and maybe trialing some hydrocortisone cream on a portion of the wound in order to alleviate the irritation that appears to be persistent No concerns ongoing infection this time Patient was advised she can return to work in one-week with a 2 lb weight limit right Patient will follow-up in 4 week for range of motion check, sooner with any acute concerns Coding Level of Care Code Global (33171) Diagnoses De Quervain's tenosynovitis, right M65.4
== END 2024-10-23 15:15 | disposition home or self-care (01) ==
PROVIDERS: PCP Internal Medicine
DX: M65.4 Radial styloid tenosynovitis [de Quervain] (principal)
CPT/HCPCS: 99024

== ENCOUNTER 2024-10-26 11:42 | Outpatient (AMB) | payer BC, SELFPAY ==
--- NOTE | 2024-10-26 11:43 | A.OFFVIS_ITS ---
Intake Visit Reasons: OV-RT 1st DC release 10/01/24 AR Intake Note: Bernadette is a 59 year old right hand dominant female who presents today post operatively for a wound check s/p Right Dorsal Compartment Release, DOS 07/01/[address] Barahona. Patient states she has a new onset of swelling around her incision. She reports she is returning to work on Tuesday and is worries she wont be able to keep up with her work obligations due to the pain. Allergies latex Allergy (Mild, Verified 10/26/24 11:43) Unknown amoxicillin Allergy (Unknown, Verified 10/26/24 11:43) Unknown clavulanic acid [From Augmentin] Allergy (Unknown, Verified 10/26/24 11:43) Unknown clindamycin Allergy (Unknown, Verified 10/26/24 11:43) Unknown levofloxacin [From Levaquin] Allergy (Unknown, Verified 10/26/24 11:43) Unknown Penicillins Allergy (Unknown, Verified 10/26/24 11:43) Unknown Sulfa (Sulfonamide Antibiotics) Allergy (Verified 10/26/24 11:43) edema HPI HPI OV-RT 1st DC release 10/01/24 AR: Details: Bernadette is a 59 year old right hand dominant female who presents today post operatively for a wound check s/p Right Dorsal Compartment Release, DOS 07/01/[address] Barahona. Patient states she has a new onset of swelling around her incision. She reports she is returning to work on Tuesday and is worries she wont be able to keep up with her work obligations due to the pain. [facility] Medical History (Updated 09/21/24 @ 15:11 by Lin Nelson MD) Contact dermatitis and other eczema due to other specified agent Osteoarthritis of hands, bilateral Social History Current occupation: rt handed Review of Systems Const All systems reviewed & are unremarkable except as noted in HPI and below Physical Exam Extrem Other: Patient is alert, oriented, and in no acute distress. Neuro: Normal sensation of the tips of all digits of the right hand at this time Vascular: Cap refill brisk Pain: Patient reports tenderness to very gentle palpation about the incision site over the 1st dorsal compartment of the right wrist Slight pain with supination of the right hand Mildly positive Robyn on the right ROM: Patient is able to flex and extend all digits of the right hand fully and without difficulty Skin: Well approximated and well healing incision site noted on the 1st dorsal compartment of the right wrist There is some mild erythema surrounding the sutures, consistent with irritation/mild allergic reaction, improved from last visit General: No ecchymosis Psych: Appears grossly normal Affect normal Attitude cooperative Assessment & Plan Assessment & Plan (1) De Quervain's tenosynovitis, right: Code(s): M65.4 - Radial styloid tenosynovitis [de Quervain] Category: Medical Plan 1. Status post right 1st dorsal compartment release Patient appears to be recovering well postoperatively Patient is educated about the typical recovery course Patient was educated she should avoid applying anything to the wound directly, and maybe trialing some hydrocortisone cream on a portion of the wound in order to alleviate the irritation that appears to be persistent No concerns ongoing infection this time Patient was advised she can return to work in at scheduled date with a 2 lb weight limit right Patient will follow-up for previously scheduled range of motion check, sooner with any acute concerns Coding Level of Care Code Global (63442) Diagnoses De Quervain's tenosynovitis, right M65.4
--- OUTSIDE RECORDS SUMMARY | 2024-10-26 12:26 | XMS_ITS | Patient Health Record ---
[facility] Address [address] [place] [address] Care Team Providers Care Carriage Dogger Name Role Phone Medardo SWANSON, Filiberto Primary Care Provider Mehrdad Scherer Unavailable [phone] Allergies Allergen (clinical drug ingredient) Drug/Non Drug Allergy documented on EMR Reaction Allergy Type Onset Date Status amoxicillin / clavulanate Augmentin rash Drug Allergy Active ciprofloxacin Cipro rash Drug Allergy Act pablo Levaquin rash Drug Allergy Active shrimp allergenic extract Shrimp (Diagnostic) Unknown Drug Allergy Active amoxicillin Amoxicillin rash Drug Allergy Act pablo clindamycin Clindamycin nausea and vomiting Drug Allergy Active erythromycin Erythromycin rash Drug Allergy A ctive Latex Latex Unknown Allergy Active Penicillin rash Drug Allergy Active rofecoxib Rofecoxib vioxx Drug Allergy Active Substance with sulfonamide structure and antibacterial mechanism of action (substance) Sulfa Antibiotics hives Drug Allergy Active Reason For Referral No Information Medications Medication SIG (Take, Route, Frequency, Duration) Notes Start Date End Date Status ProAir HFA Active Seasonale Active Vitamin D Active Azelastine HCl Activ e Flonase Active Florastor Active Metoprolol Succinate 50 MG 1 capsule Ora lly Once a day for 30 day(s) Active PriLOSEC Active Social History Tobacco Use: Social History Observation Description Date Details (start date - stop date) Never Smoker NA - NA Tobacco Use/Smoking Question Answer Notes Are you a: nonsmoker Additional Findings: Tobacco Non-User Current no n-smoker Alcohol Screen Question Answer Notes Did you have a drink containing alcohol in the p ast year? Yes Points 0 Interpretation Negative Tobacco use other than smoking: Question Answer Notes Are you an other tobacco user? No Plan Of Treatment No Information Insurance Providers Payer Name Payer Address Payer Phone Subscriber Number Group Number Insured Name Patient Relationship to Insured Coverage Start Date Coverage End Date [facility] [address] [place] [address] [phone] [id number] Bernadette Vuong Self - patient is the insured Medical (General) History Medical History History ICD Code asthma Chicken pox Gall bladder problems Headaches High blood pressure Surgical History Surgery Date(Month/Year) appendectomy 1981 Lip[place] - RT knee 1985 gall bladder 04/2008
== END 2024-10-26 11:56 | disposition home or self-care (01) ==
PROVIDERS: PCP Internal Medicine
DX: M65.4 Radial styloid tenosynovitis [de Quervain] (principal)
CPT/HCPCS: 99024

== ENCOUNTER → 2024-10-26 11:42 | Outpatient (BNVA) | payer BC, SELFPAY | PROVIDERS: PCP Internal Medicine ==

== ENCOUNTER 2024-11-23 13:29 | Outpatient (AMB) | payer BC, SELFPAY ==
--- NOTE | 2024-11-23 13:47 | A.OFFVIS_ITS ---
Vital Signs 11/23/24 13:48 Height 5 ft 3.5 in Weight 238 lb BMI 41.5 Handedness Right Intake Visit Reasons: PO RT 1st DC release 10/01/24 AR Intake Note: Bernadette is a 59 year old right hand dominant female who presents today post operatively for a wound check s/p Right Dorsal Compartment Release, DOS 10/01/[address] Barahona. Patient reports she has been having pain and swelling in her right hand and wrist and occasional stinging. She says it does not feel the same discomfort what it was in the past before surgery. She has returned back to work and has been cautious however she does not know why she is having these symptoms. Allergies latex Allergy (Mild, Verified 11/23/24 13:49) Unknown amoxicillin Allergy (Unknown, Verified 11/23/24 13:49) Unknown clavulanic acid [From Augmentin] Allergy (Unknown, Verified 11/23/24 13:49) Unknown clindamycin Allergy (Unknown, Verified 11/23/24 13:49) Unknown levofloxacin [From Levaquin] Allergy (Unknown, Verified 11/23/24 13:49) Unknown Penicillins Allergy (Unknown, Verified 11/23/24 13:49) Unknown Sulfa (Sulfonamide Antibiotics) Allergy (Verified 11/23/24 13:49) edema HPI HPI PO RT 1st DC release 10/01/24 AR: Details: Bernadette is a 59 year old right hand dominant female who presents today post operatively for a wound check s/p Right Dorsal Compartment Release, DOS 10/01/[address] Barahona. Patient reports she has been having pain and swelling in her right hand and wrist and occasional stinging. She says it does not feel the same discomfort what it was in the past before surgery. She has returned back to work and has been cautious however she does not know why she is having these symptoms. [facility] Medical History (Updated 09/21/24 @ 15:11 by Lin Nelson MD) Contact dermatitis and other eczema due to other specified agent Osteoarthritis of hands, bilateral Social History Current occupation: rt handed Review of Systems Const All systems reviewed & are unremarkable except as noted in HPI and below Physical Exam Vital Signs: BMI result Body Mass Index 41.5 Extrem Other: Patient is alert, oriented, and in no acute distress. Neuro: Normal sensation of the tips of all digits of the right hand at this time Vascular: Cap refill brisk Pain: Patient reports tenderness to very gentle palpation about the incision site over the 1st dorsal compartment of the right wrist Slight pain with supination of the right hand Mildly positive Robyn on the right ROM: Patient is able to flex and extend all digits of the right hand fully and without difficulty Skin: Well approximated and well healed incision site noted on the 1st dorsal compartment of the right wrist There is some mild erythema surrounding the sutures, consistent with irritation/mild allergic reaction, improved from last visit General: No ecchymosis Psych: Appears grossly normal Affect normal Attitude cooperative Assessment & Plan Assessment & Plan (1) De Quervain's tenosynovitis, right: Code(s): M65.4 - Radial styloid tenosynovitis [de Quervain] Category: Medical (2) Osteoarthritis of hands, bilateral: Code(s): M19.041 - Primary osteoarthritis, right hand; M19.042 - Primary osteoarthritis, left hand Category: Medical Qualifiers: Osteoarthritis type: primary Qualified Code(s): M19.041 - Primary osteoarthritis, right hand; M19.042 - Primary osteoarthritis, left hand Plan 1. Status post right 1st dorsal compartment release Patient appears to be recovering well postoperatively Patient is educated about the typical recovery course No concerns ongoing infection this time Patient was advised she can return to work, can increase to a 5-10 lb weight limit over the next 2 weeks, 15 lb in the following 2 weeks, and then normal activity. Patient will follow-up as needed with any acute concerns Orders: Orders OT Evaluation and Treatment 11/23/24 M19.041 - Primary osteoarthritis, right hand, M19.042 - Primary osteoarthritis, left hand, M65.4 - Radial styloid tenosynovitis [de Quervain] Coding Level of Care Code Global (41919) Diagnoses De Quervain's tenosynovitis, right M65.4 Primary osteoarthritis of both hands M19.041; M19.042 Osteoarthritis type: primary
[2024-11-23 13:48] VITALS: BMI 41.5
--- OUTSIDE RECORDS SUMMARY | 2024-11-23 15:06 | XMS_ITS | Patient Health Record ---
Author Organization [facility] Address [address] [place] [address] Care Team Providers Care Project Management It Specialist Name Role Phone Medardo SWANSON, Filiberto Primary Care Provider Mehrdad Scherer Unavailable [phone] Allergies Allergen (clinical drug ingredient) Drug/Non Drug [...] Insured Coverage Start Date Coverage End Date [facility] [address] [place] [address] [phone] [id number] 5 Bernadette Vuong Self - patient is the insured Medical (General) History Medical History History ICD Code asthma Chicken pox Gall bladder problems Headaches High blood pressure Surgical History Surgery Date(Month/Year) appendectomy 1981 Lip[place] - RT knee 1985 gall bladder 04/2008
== END 2024-11-23 14:06 | disposition home or self-care (01) ==
LOC: HO.HOS 13:30
PROVIDERS: PCP Internal Medicine
DX: M65.4 Radial styloid tenosynovitis [de Quervain] (principal); M19.041 Primary osteoarthritis, right hand; M19.042 Primary osteoarthritis, left hand
CPT/HCPCS: 99024

== ENCOUNTER → 2025-09-04 13:57 | Outpatient (REF) | payer BC, SELFPAY ==
--- OUTSIDE RECORDS SUMMARY | 2025-09-04 14:00 | XMS_ITS | Patient Health Record ---
Author Organization [facility] Address [address] [address] Care Team Providers Care Oracle Ebs Developer Name Role Phone Medardo SWANSON, Filiberto Primary Care Provider Mehrdad Scherer Unavailable [phone] Allergies Allergen (clinical drug ingredient) Drug/Non Drug [...] MG 1 capsule Ora lly Once a day; Duration: 30 day(s) Active PriLOSEC Active Social History [...] Insured Coverage Start Date Coverage End Date [facility] [address] [place] [address] [id number] Bernadette Vuong Self - patient is the insured Medical (General) History Medical History History ICD Code asthma Chicken pox Gall bladder problems Headaches High blood pressure Surgical History Surgery Date(Month/Year) appendectomy 1981 Lip[place] - RT knee 1985 gall bladder 04/2008
== END ==
LOC: HO.SL 13:57
PROVIDERS: PCP Internal Medicine; Visit Provider Internal Medicine
DX: G47.33 Obstructive sleep apnea (adult) (pediatric) (principal); R06.83 Snoring
CPT/HCPCS: 95806

== ENCOUNTER → 2025-09-07 21:00 | Outpatient (BNV) | payer BC, SELFPAY | PROVIDERS: PCP Internal Medicine; Visit Provider Internal Medicine | DX: R40.0 Somnolence (principal); R06.83 Snoring | CPT/HCPCS: 95806 ==